=== PATIENT | male | born 1985 | race Caucasian/White ===

== ENCOUNTER 2023-09-06 16:11 | Emergency (ER) | payer MEDICAID, OTHER ==
[~2023-09-06] VITALS: Ht 165.1 cm; Wt 95.3 kg
[2023-09-06 16:25] VITALS: O2SAT 99
[2023-09-06] MEDS: ACETAMINOPHEN 325MG TABLET PO ONE (18:06)
[2023-09-06] MEDS: TETANUS, DIPHTHERIA, PERTUSSIS VAC/PF 0.5ML (>10YR OLD) IM ONE (18:06)
[2023-09-06] MEDS: HYDROCODONE/ACETAMINOPHEN 5/325MG TABLET PO ONE (18:21)
[2023-09-06] MEDS ORDERED: TRANEXAMIC ACID 1,000MG/10ML TP ONE (18:45)
[2023-09-06 18:53] VITALS: BP 135/57; PULSE 61; RESP 18; TEMP 98.7
== END 2023-09-06 19:10 | disposition home or self-care (01) ==
LOC: ER 16:11
DX: S61.202A Unspecified open wound of right middle finger without damage to nail, initial encounter (principal); J45.909 Unspecified asthma, uncomplicated; W25.XXXA Contact with sharp glass, initial encounter; Y93.89 Activity, other specified; Y92.89 Other specified places as the place of occurrence of the external cause; Y99.8 Other external cause status
CPT/HCPCS: 73130; 90715; 90471; 99283; Z7610